=== PATIENT | male | born 1955 | race Caucasian/White ===

== ENCOUNTER 2017-03-25 19:48 | Emergency (ER) | payer OTHER ==
[~2017-03-25] VITALS: Ht 177.8 cm; Wt 108.9 kg
[~2017-03-25 19:48] MED LIST: ALBUTEROL0.63 MG/3 INH; AMLODIPINE BESY10 MG PO; ANUSOL-HC25 MG PR; ASPIR 8181 MG PO; ASPIRIN EC325 MG PO; CARVEDILOL12.5 MG PO; CARVEDILOL25 MG PO; CARVEDILOL3.125 MG PO; CLONIDINE HCL0.2 MG PO; CLOTRIMAZOLE-BE15 GM TOP; HYDROCHLOROTHIA25 MG PO; IRBESARTAN-HCT1 EAC1 PO; LEVAQUIN500 MG PO; METOPROLOL TART25 MG PO; MINOXIDIL2.5 MG PO; NIFEDICAL XL60 MG PO; OMEPRAZOLE20 MG PO; PEPCID40 MG PO; POTASSIUM CHLO10 MEQ PO; PREDNISONE20 MG PO; ZYRTEC10 MG PO
[2017-03-25] MEDS ORDERED: CLONIDINE HCL0.1 MG PO (23:03)
--- NOTE | 2017-03-26 15:58 | EKG ---
[facility] [address] [facility] [place] [address] Signed Sinus tachycardia with occasional premature ventricular complexes Left axis deviation Inferior infarct , age undetermined Cannot rule out Anterior infarct , age undetermined Abnormal ECG No previous ECGs available Confirmed by FRANK MIR MD ([id number]) on 03/26/2017 3:58:24 PM Electronically Signed By: FRANK MIR MD 03/26/17 1558 PATIENT NAME: NUSRAT YATES Electrocardiogram DATE OF : 51 PHYSICIAN: FRANK MIR MD REPORT #: [id number] REPORT IS CONFIDENTIAL AND NOT TO BE RELEASED WITHOUT AUTHORIZATION
== END 2017-03-25 23:16 | disposition home or self-care (01) ==
LOC: ED 19:48
DX: I16.0 Hypertensive urgency (principal); N28.9 Disorder of kidney and ureter, unspecified; J45.909 Unspecified asthma, uncomplicated; E78.5 Hyperlipidemia, unspecified; G35 Multiple sclerosis; Z95.1 Presence of aortocoronary bypass graft; Z88.0 Allergy status to penicillin; Z88.2 Allergy status to sulfonamides; Z88.8 Allergy status to other drugs, medicaments and biological substances; Z88.7 Allergy status to serum and vaccine; Z79.899 Other long term (current) drug therapy
CPT/HCPCS: 70450; 71010; 80053; 84484; 85025; 85610; 93005; 93010; 99284

== ENCOUNTER 2017-07-03 17:19 | Emergency (ER) | payer OTHER ==
[~2017-07-03] VITALS: Ht 177.8 cm; Wt 108.9 kg
[~2017-07-03 17:19] MED LIST changes: +CLONIDINE HCL0.1 MG PO
[2017-07-03] MEDS ORDERED: XANAX0.5 MG PO (18:44)
[2017-07-03] MEDS ORDERED: CATAPRES0.2 MG PO (18:44)
--- NOTE | 2017-07-04 01:33 | EKG ---
[facility] [address] [facility] [place] [address] Signed Sinus rhythm with occasional premature ventricular complexes Left axis deviation Inferior infarct (cited on or before 25-MAR-2017) Prolonged QT Abnormal ECG When compared with ECG of 25-MAR-2017 20:08, No significant change was found Confirmed by FRANK MIR MD ([id number]) on 07/04/2017 1:33:09 AM Electronically Signed By: FRANK MIR MD 07/04/17 0133 PATIENT NAME: NUSRAT YATES Electrocardiogram DATE OF : 51 PHYSICIAN: FRANK MIR MD REPORT #: [id number] REPORT IS CONFIDENTIAL AND NOT TO BE RELEASED WITHOUT AUTHORIZATION
== END 2017-07-03 19:09 | disposition home or self-care (01) ==
LOC: ED 17:19
DX: I10 Essential (primary) hypertension (principal); F06.4 Anxiety disorder due to known physiological condition; Z88.0 Allergy status to penicillin; Z88.2 Allergy status to sulfonamides; Z88.1 Allergy status to other antibiotic agents; Z88.8 Allergy status to other drugs, medicaments and biological substances
CPT/HCPCS: 71010; 80053; 81001; 84484; 85025; 93005; 93010; 96374; 99283; J2060

== ENCOUNTER → 2018-03-26 | Emergency (ER) | payer OTHER ==
[~2018-03-26] VITALS: Ht 177.8 cm; Wt 108.9 kg
[~2018-03-26] MED LIST changes: +CATAPRES0.2 MG PO; +XANAX0.5 MG PO
--- OUTSIDE RECORDS SUMMARY | ~2018-03-26 | XMS | Encounter Summary ---
Demographics + + + | Address | [address] | | | [place] [address] | + + + | Home Phone | | + + + | Preferred Language | Unknown | + + + | Marital Status | Single | + + + | Zoroastrianism Affiliation | 1013 | + + + | Race | Unknown | + + + | Ethnic Group | Unknown | + + + Author + + + | Author | [facility] | + + + | Organization | [facility] | + + + | Address | Unknown | + + + | Phone | Unavailable | + + + Support + + +---------+ + | Name | Relationship | Address | Phone | + + +---------+ + | Carlos Wall | ECON | Unknown | | + + +---------+ + Care Team Providers + +------+ + | Care Cashier Credit Name | Role | Phone | + +------+ + | Brett Choudhury DO | PCP | | + +------+ + Reason for Visit +--------+ + | Reason | Comments | +--------+ + | Other | [facility], Admission 01/16/18 | +--------+ + Encounter Details +--------+ + + + + | Date | Type | Department | Care Team | Description | +--------+ + + + + | 01/23/ | Documentati | [facility] | Jenna, | Other ([facility] | | 2018 | on Only | [facility] | Om[facility] | Ramon Fuchs | | | | Care [address] | | [facility] | | | | [place], [place] | | Hospital, Admission | | | | [id number] | | 01/16/18) | +--------+ + + + + Social History + +-------+ +--------+------+ | Tobacco Use | Types | Packs/Day | Years | Date | | | | | Used | | + +-------+ +--------+------+ | Never Smoker | | | | | + +-------+ +--------+------+ + +---+---+---+ | Smokeless Tobacco: | | | | | Never Used | | | | + +---+---+---+ + + +---------+ + | Alcohol Use | Drinks/We | oz/Week | Comments | | | ek | | | + + +---------+ + | No | 0 | 0.0 | | | | Standard | | | | | drinks or | | | | | | | | | | equivalen | | | | | t | | | + + +---------+ + + + + | Sex Assigned at | Date Recorded | | | | + + + | Not on file | | + + + as of this encounter Progress Notes Om[facility] [place], ASSISTANT DIRECTOR OF RESIDENCE LIFE - 01/23/2018 9:59 [facility] 01[facility]16[facility]18in this encounter Plan of Treatment Not on fileas of this encounter Visit Diagnoses Not on filein this encounter"
--- OUTSIDE RECORDS SUMMARY | ~2018-03-26 | XMS | Encounter Summary ---
Demographics + + + | Address | [address] | | | [place] [address] | + + + | Home Phone | | + + + | Preferred Language | Unknown | + + + | Marital Status | Single | + + + | Religion Affiliation | 1013 | + + + | Race | Unknown | + + + | Ethnic Group | Unknown | + + + Author + + + | Author | [facility] [employer] [facility] | + + + | Organization | [facility] | + + + | Address | Unknown | + + + | Phone | Unavailable | + + + Support + + +---------+ + | Name | Relationship | Address | Phone | + + +---------+ + | Carlos Wall | ECON | Unknown | | + + +---------+ + Care Team Providers + +------+ + | Care Correctional Casework Specialist Name | Role | Phone | + +------+ + | Brett Choudhury DO | PCP | | + +------+ + Encounter Details +--------+ + + + + | Date | Type | Department | Care Team | Description | +--------+ + + + + | 03/06/ | Proactive | [facility] | Brett Choudhury | | | 2018 | Outreach | [facility] | DO Tata [address] | | | | | Care [address] | [place], [place] | | | | | [place], [place] | [address] | | | | | [address] | | | +--------+ + + + + Social [...] + + + as of this encounter Plan of Treatment Not on fileas of this encounter Visit Diagnoses Not on filein this encounter"
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
--- OUTSIDE RECORDS SUMMARY | ~2018-03-26 | XMS | Encounter Summary ---
Demographics + + + | Address | [address] | | | [place] [address] | + + + | Home Phone | | + + + | Preferred Language | Unknown | + + + | Marital Status | Single | + + + | Restorationism Affiliation | 1013 | + + + | Race | Unknown | + + + | Ethnic Group | Unknown | + + + Author + + + | Author | [facility] [employer] [facility] | + + + | Organization | [facility] | + + + | Address | Unknown | + + + | Phone | Unavailable | + + + Support + + +---------+ + | Name | Relationship | Address | Phone | + + +---------+ + | Carlos Wall | ECON | Unknown | | + + +---------+ + Care Team Providers + +------+ + | Care Director Of Field Sales Name | Role | Phone | + +------+ + | Brett Choudhury DO | PCP | | + +------+ + Encounter Details +--------+ + + + + | Date | Type | Department | Care Team | Description | +--------+ + + + + | 03/06/ | Proactive | [facility] | Brett Choudhury | | | 2018 | Outreach | [facility] | DO [address]ata [address] | | | | | Care [address] | [place], [place] | | | | | [place], [place] | [address] | | | | | [address] | | | +--------+ + + + [...]
--- OUTSIDE RECORDS SUMMARY | ~2018-03-26 | XMS | Clinical Summary ---
Demographics + + + | Address | [address] | | | [place] [address] | + + + | Home Phone | | + + + | Preferred Language | Unknown | + + + | Marital Status | Single | + + + | Anglican Affiliation | 1013 | + + + | Race | Unknown | + + + | Ethnic Group | Unknown | + + + Author + + + | Author | [facility] | + + + | Organization | [facility] | + + + | Address | Unknown | + + + | Phone | Unavailable | + + + Support + + +---------+ + | Name | Relationship | Address | Phone | + + +---------+ + | Carlos Wall | ECON | Unknown | | + + +---------+ + Care Team Providers + +------+ + | Care Pearl Digger Name | Role | Phone | + [...] + + + + + + | [place] Extract | Other (See Comments) | High [...] artery disease involving coronary bypass graft of three affiliated | 03/04/2016 | | heart without angina [...] | painPharmacological stress MPI - no significant [id number] echo | | normal LV functionContinue ASA, [...] + +---+ | Coronary artery disease involving three affiliated coronary artery of | | | three affiliated heart without angina pectoris | | + [...] | | | | | | [facility] | | | | | | Hospital, [...] +------+-------+ + | MEDICAID | [employer] | [id number] | | | [address] | | | N | | | | [place] | | | [place] | | | | [phone] | | | 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
--- OUTSIDE RECORDS SUMMARY | ~2018-03-26 | XMS | Encounter Summary ---
Demographics + + + | Address | [address] | | | [place] [address] | + + + | Home Phone | | + + + | Preferred Language | Unknown | + + + | Marital Status | Single | + + + | Christianity Affiliation | 1013 | + + + | Race | Unknown | + + + | Ethnic Group | Unknown | + + + Author + + + | Author | [facility] | + + + | Organization | [facility] | + + + | Address | Unknown | + + + | Phone | Unavailable | + + + Support + + +---------+ + | Name | Relationship | Address | Phone | + + +---------+ + | Carlos Wall | ECON | Unknown | | + + +---------+ + Care Team Providers + +------+ + | Care Professional Security Officer Name | Role | Phone | + +------+ + | Brett Choudhury DO | PCP | | + +------+ + Reason for Visit +--------+ + | Reason | Comments | +--------+ + | Other | [facility], Admission 01/16/18 | +--------+ + Encounter Details +--------+ + + + + | Date | Type | Department | Care Team | Description | +--------+ + + + + | 01/23/ | Documentati | [facility] | Jenna, | Other ([facility] | | 2018 | on Only | [facility] | Om[facility] | Ramon Fuchs | | | | Care [address] | | [facility] | | | | [place], [place] | | Hospital, Admission | | | | [id number] | | 01/16/18) | +--------+ + + [...] of this encounter Progress Notes Omari West, ORTHOTIC/PROSTHETIC CLINICIAN - 01/23/2018 9:59 AM [facility], Admission 01/16/18in this encounter Plan of Treatment Not on fileas of this encounter Visit Diagnoses Not on filein this encounter"
--- NOTE | 2018-03-26 16:41 | EKG ---
[facility] [address] [facility] [place] [address] Signed Sinus tachycardia Right superior axis deviation Marked ST abnormality, possible lateral subendocardial injury Abnormal ECG When compared with ECG of 03-JUL-2017 17:34, premature ventricular complexes are no longer present Criteria for Inferior infarct are no longer present Non-specific change in ST segment in Anterior leads ST more depressed in Lateral leads Inverted T waves have replaced nonspecific T wave abnormality in Lateral leads Confirmed by AURELIA CALIX DO ([id number]) on 03/26/2018 4:40:58 PM Electronically Signed By: AURELIA CALIX DO 03/26/18 1641 PATIENT NAME: NUSRAT YATES Electrocardiogram DATE OF : 51 PHYSICIAN: AURELIA CALIX DO REPORT #: [id number] REPORT IS CONFIDENTIAL AND NOT TO BE RELEASED WITHOUT AUTHORIZATION
--- NOTE | 2018-03-26 16:43 | EKG ---
[facility] [address] [facility] [place], [place] [address] Signed Normal sinus rhythm Right superior axis deviation ST \T\ T wave abnormality, consider lateral ischemia Prolonged QT Abnormal ECG When compared with ECG of 26-MAR-2018 02:56, (Unconfirmed) T wave inversion more evident in Lateral leads Confirmed by AURELIA CALIX DO ([id number]) on 03/26/2018 4:42:51 PM Electronically Signed By: AURELIA CALIX DO 03/26/18 1643 PATIENT NAME: TRUDYNUSRAT LARRY Electrocardiogram DATE OF : 51 PHYSICIAN: AURELIA CALIX DO REPORT #: [id number] REPORT IS CONFIDENTIAL AND NOT TO BE RELEASED WITHOUT AUTHORIZATION
== END ==
LOC: ED 02:26
DX: I21.4 Non-ST elevation (NSTEMI) myocardial infarction (principal); I16.1 Hypertensive emergency; Z91.14 Patient's other noncompliance with medication regimen; Z88.0 Allergy status to penicillin; Z88.2 Allergy status to sulfonamides; Z88.8 Allergy status to other drugs, medicaments and biological substances; Z88.1 Allergy status to other antibiotic agents; Z88.7 Allergy status to serum and vaccine
CPT/HCPCS: 71046; 80053; 81001; 83690; 84484; 85025; 85610; 85730; 93005; 93010; 96361; 96374; 96375; 99291; J1644; J2405; J7030